=== PATIENT | female | born 1950 | race Caucasian/White ===

== ENCOUNTER → 2017-07-27 | Outpatient (CLI) | payer OTHER | LOC: FIMAGING 14:28 | PROVIDERS: ATTEND Obstetrics & Gynecology Gynecology | DX: Z12.31 Encounter for screening mammogram for malignant neoplasm of breast (principal) | CPT/HCPCS: G0202 ==

== ENCOUNTER 2017-11-18 05:47 | Observation (INO) | payer OTHER ==
--- NOTE | 2017-11-17 21:07 | PDGENHP ---
History and Physical History and Physical: Assessment and Plan: 1. Cystocele, lateral Lizbet has stage III pelvic organ prolapse which is predominantly her anterior compartment with lesser her apical and posterior. She also has a dilated genital hiatus. We reviewed all conservative and surgical options. Given her active lifestyle and her prolapse involving all 3 compartments her best option appears to be a supracervical hysterectomy with sacral colpopexy and perineoplasty. She will discuss this with her and call us back when she is ready to schedule. 2. Second degree uterine prolapse 3. Rectocele Subjective: Patient ID: Lizbet Oneal is a 67 y.o. female who [facility] to [facility] for prolapse. HPI Lizbet Oneal presents for a preoperative visit. She is scheduled for a sacrocolpopexy. The risks, benefits, and alternatives were presented and informed consent was obtained. 40 minutes of this 40 minute appointment was spent counceling, reviewing the procedure in detail, and discussing the preoperative and postoperative instructions. Below is a copy of our prior visit note. Lizbet is a 67-year-old para 4 woman. She was referred by her friend Dr. Darby Dyson. Her is a albacore fishing boat crewman in [place]. Her last was a twin vaginal . One twin weighed 8 lbs. 14 oz. She has had symptoms of prolapse for many years. She saw Dr. Katt Chandler in 2012. She has tried pelvic floor physical therapy without much benefit. She is not interested in trying a pessary. She is becoming more bothered by the protrusion from her vagina. It becomes more prominent when drinking fluids such as while golfing. She also notices it with activities such as skiing. She has no history of stress incontinence. She does have urinary frequency and occasional urgency. She is infrequently sexually active. PastMedicalHistory Past Medical History: Diagnosis Date Allergy to pollen Heart disease high cholesterol Urinary tract infection PastSurgicalHistory Past Surgical History: Procedure Laterality Date GYNECOLOGIC CRYOSURGERY JOINT REPLACEMENT Right 2013 CURRENT MEDICATIONS: Current Outpatient Prescriptions Medication Sig ASCORBATE CALCIUM (VITAMIN C PO) cholecalciferol (VITAMIN D3) 2,000 unit capsule ESTRACE 0.01 % (0.1 mg/gram) vaginal cream multivitamin with minerals tablet Take 1 tablet by mouth. rosuvastatin (CRESTOR) 20 mg tablet Take 20 mg by mouth. ZINC PO No current facility-administered medications for this visit. ALLERGIES: Methylchloroisothiazolinone I have reviewed, verified and agree with the past medical, surgical, , family, social and ROS history as documented by the RN today. Objective: Vital Signs: Visit Vitals BP 100/62 Pulse 67 Temp 35.9 C (96.7 F) (Temporal Artery) Resp 16 Ht 1.683 m (5' 6.25") Wt 73.2 kg (161 lb 6.4 oz) SpO2 95% BMI 25.85 kg/m Physical Exam Gen: This is an alert, well developed woman in no distress. Neuro: She moves all extremities. Psych: She is appropriate, oriented, with normal affect. Neck: No thyroid enlargement, adenopathy, or tenderness. Lungs: Clear to ascultation, no wheezes or rales. Heart: Regular rate and rhythm without obvious murmurs. Abdomen: Soft, non-tender, without guarding, rebound, or masses. Extremities: No edema or cyanosis. Pelvic: Normal external genitalia. She has a urethral carbuncle. Gaping introitus, vagina without discharge, atrophic. Cervix without lesions or discharge. Uterus normal sized, non-tender. Adnexa non-tender without enlargement. She has a third-degree cystocele, second-degree uterine prolapse, and second-degree rectocele. Uterus is retroverted with reduced mobility. POP-Q Values are: Aa= +3, Ba= +5, C= -1 Gh= 4.5, pb= 2, tvl= 10 Ap= -1, Bp= -1, D= -4 DATA: I have reviewed the pertinent medical records. TIME/COMMUNICATION: I personally spent a total of 50 minutes. Of that 40 minutes was counseling/ coordination of patient's care. See my note above for details. Jacques Levine MD Board Certified Female Pelvic Medicine and Reconstructive Surgery Director of Minimally Invasive Gynecologic Surgery, [facility] Surgeon in Minimally Invasive Gynecologic Surgery [facility] Surgeon in Robotic Surgery
[2017-11-18] MEDS ORDERED: LR 1,000 ML IV ONE (06:04)
[2017-11-18] MEDS ORDERED: LIDOCAINE 1% 2 ML INJ ID PRN (06:04)
[2017-11-18] MEDS ORDERED: BUPIVACAINE/EPI 0.5% 30 ML SDV ONE (06:13)
[2017-11-18] MEDS ORDERED: MIDAZOLAM 2 MG/2 ML VIAL IVP ONE (07:01)
--- NOTE | 2017-11-18 07:01 | PDANEPAE ---
ANE History of Present Illness 67 yo for Lap hysterectomy ANE Past Medical History - Cardiovascular History Hx Hypertension: No Hx Arrhythmias: No Hx Chest Pain: No Hx Coronary Artery / Peripheral Vascular Disease: No Hx CHF / Valvular Disease: No Hx Palpitations: No Cardiovascular History Comment: HIGH CHOL - Pulmonary History Hx COPD: No Hx Asthma/Reactive Airway Disease: No Hx Recent Upper Respiratory Infection: No Hx Oxygen in Use at Home: No Hx Sleep Apnea: No Sleep Apnea Screening Result - Last Documented: Negative - Neurologic History Hx Cerebrovascular Accident: No Hx Seizures: No Hx Dementia: No - Endocrine History Hx Diabetes: No - Renal History Hx Renal Disorders: Yes Renal History Comment: CYSTOCELE - Liver History Hx Hepatic Disorders: No - Neurological & Psychiatric Hx Hx Neurological and Psychiatric Disorders: No - Cancer History Hx Cancer: No - Congenital Disorder History Hx Congenital Disorders: No - GI History Hx Gastrointestinal Disorders: Yes Gastrointestinal History Comment: TENDS TOWARDS CONSTIPATION - Other Health History Other Health History: WEARS GLASSES - Chronic Pain History Chronic Pain: Yes (ARTHRITIS TO JOINTS) - Surgical History Prior Surgeries: RIGHT TKA 10/2013 ANE Review of Systems Review of Systems: - Exercise capacity METS (RN): 4 METS ANE Patient History - Allergies Allergies/Adverse Reactions: methylchloroisothiazolinone Allergy (Verified 10/15/17 12:14) RASH TO LEGS - Home Medications Home medications: home medication list seen and reviewed Home Medications: Ascorbic Acid [Vitamin C 500 mg (*)] 1,000 mg PO DAILY 10/14/17 [Last Taken ] Cholecalciferol Vit D3 [Vitamin D3 2000 units tab (OTC)] 2,000 units PO DAILY [Last Taken 11/11/17] Docusate Sodium [Colace 100 MG (*)] 100 mg PO DAILY 10/14/17 [Last Taken 09:00] Herbals/Supplements -Info Only 1 ea PO DAILY 10/14/17 [Last Taken 11/11/17] Multivitamins [Multivitamin (*)] 1 each PO DAILY 10/14/17 [Last Taken 11/11/17] Naproxen Sodium [Aleve 220 MG (*)] 220 - 440 mg PO BID 10/14/17 [Last Taken ] Rosuvastatin Calcium [Crestor] 10 mg PO DAILY 10/14/17 [Last Taken 03/06/18 09: 00] - NPO status NPO Status: no food or drink >8 hours NPO Since - Liquids (Date): 11/17/17 NPO Since - Liquids (Time): 22:00 NPO Since - Solids (Date): 11/17/17 NPO Since - Solids (Time): 19:30 - Smoking Hx Smoking Status: Former smoker - Family Anes Hx Family Hx Anesthesia Complications: NONE ANE Labs/Vital Signs - Vital Signs Blood Pressure: 134/79 Heart Rate: 57 Respiratory Rate: 14 O2 Sat (%): 94 Height: 5 ft 6.52 in Weight: 73.028 kg ANE Physical Exam - Airway Neck exam: FROM Mallampati Score: Class 2 Mouth exam: normal dental/mouth exam - Pulmonary Pulmonary: no respiratory distress - Cardiovascular Cardiovascular: regular rate and rhythym - ASA Status ASA Status: II ANE Anesthesia Plan Anesthesia Plan: general endotracheal anesthesia
[2017-11-18] MEDS ORDERED: ceFAZolin 2 GM/SWFI 2 GM/20 ML SYR IVP ONE (07:11)
--- NOTE | 2017-11-18 07:11 | PDHPUP ---
History & Physical Update H&P update statement: This history and physical update is based on an assessment of the patient which was completed after admission or registration (within 24 hours), but prior to the surgery/procedure. H&P update: H&P reviewed & patient examined, no change in patient's condition since H&P completed
[2017-11-18] MEDS ORDERED: REMIFENTANIL HCL 1 MG VIAL ONE (07:13)
[2017-11-18] MEDS ORDERED: fentaNYL 100 MCG/2 ML INJ ONE ×3 (07:13→10:18)
[2017-11-18] MEDS ORDERED: PROPOFOL/EMULSION 500 MG/50 ML BOTTLE IV ONE (07:13)
[2017-11-18] MEDS ORDERED: PROPOFOL 200 MG/20 ML VIAL ONE (07:15)
[2017-11-18] MEDS ORDERED: ROCURONIUM 100 MG/10 ML VIAL ONE (07:16)
[2017-11-18] MEDS ORDERED: DEXAMETHASONE 4 MG/ML VIAL ONE (07:17)
[2017-11-18] MEDS ORDERED: ONDANSETRON 4 MG/2 ML VIAL IVP PRN ×2 (09:45→09:58)
[2017-11-18] MEDS ORDERED: HYDROmorphONE/DILAUDID 1 MG/ML INJ IVP PRN (09:45)
[2017-11-18] MEDS ORDERED: NALOXONE HCL 0.4 MG/ML INJ IVP PRN (09:45)
[2017-11-18] MEDS ORDERED: PROMETHAZINE HCL 25 MG/ML INJ IVP PRN (09:58)
--- NOTE | 2017-11-18 09:58 | POSTOPPROG ---
Post Op Note Date of Operation: 11/18/17 Surgeon: Jacques Levine Supervisor [employer] Goods: Fabienne Soto Anesthesia: GET(General Endotracheal) Pre-op Diagnosis: Uterovaginal prolpse, stress incontinence Post-op Diagnosis: Same Procedure: Robotic hyst/BSO, sacrocolpopexy, TOT sling, cysto Findings: No urethral or bladder injury Inf/Abcess present in the surg proc area at time of surgery?: No EBL: Minimal Complications: None
[2017-11-18] MEDS ORDERED: LR 1,000 ML IV SCH (10:00)
--- NOTE | 2017-11-18 10:06 | POSTANESTH ---
Post Anesthetic Evaluation Cardiovascular Status: Normal, Stable Respiratory Status: Normal, Stable Level of Consciousness/Mental Status: Can Participate in Eval Pain Control: Adequate, Prn Tx Ordered Nausea/Vomiting Control: Adequate, Prn Tx Ordered Complications Possibly Related to Anesthesia: None Noted
[2017-11-18] MEDS ORDERED: HYDROmorphONE/DILAUDID 2 MG/ML INJ ONE (10:19)
[2017-11-18] MEDS ORDERED: HYDROmorphONE/DILAUDID 2 MG/ML INJ IVP PRN (10:21)
[2017-11-18] MEDS: HYDROmorphONE/DILAUDID 2 MG/ML INJ IVP PRN ×2 (10:24→10:35)
[2017-11-18] MEDS: fentaNYL 100 MCG/2 ML INJ IVP PRN ×2 (10:26→10:56)
[2017-11-18] MEDS ORDERED: DIAZEPAM 5 MG/ML 1 ML SYR ONE (11:02)
[2017-11-18] MEDS ORDERED: DIAZEPAM 5 MG/ML 1 ML SYR IVP PRN ×2 (11:17→12:06)
[2017-11-18] MEDS: KETOROLAC 30 MG/1 ML SDV IVP SCH ×2 (12:30→17:47)
[2017-11-18] MEDS: SIMETHICONE 80 MG TAB CHEW PO SCH ×3 (14:13→21:29)
[2017-11-18] MEDS: HYDROCODONE/APAP 5/325 TAB PO PRN ×3 (14:13→21:29)
--- NOTE | 2017-11-18 15:14 | GOP ---
[f rep st] OPERATIVE REPORT DATE OF OPERATION: 11/18/2017 SURGEON: Jacques Levine MD GAS TREATER: EMILY Medeiros ANESTHESIA: General. PREOPERATIVE DIAGNOSIS: 1. Uterovaginal prolapse. 2. Stress urinary incontinence. POSTOPERATIVE DIAGNOSIS: 1. Uterovaginal prolapse. 2. Stress urinary incontinence. PROCEDURE PERFORMED: 1. Robotic-assisted laparoscopic hysterectomy, bilateral salpingo oophorectomy. 2. Robotic-assisted laparoscopic sacrocervicopexy with mesh. 3. Repair of cystocele and rectocele. 4. Transobturator sling. 5. Perineorrhaphy. 6. Cystoscopy. FINDINGS: SPECIMENS: Uterus, bilateral tubes and ovaries. ESTIMATED BLOOD LOSS: Scant. DESCRIPTION OF PROCEDURE: The patient was taken to the operating room. She was identified. General anesthesia was administered. She was in the lithotomy position and prepped and prepared and draped in normal sterile fashion. A Saleh catheter was placed in her bladder. A 1 cm infraumbilical incision was made with a scalpel. The Veress needle with CO2 gas flowing was advanced into the peritoneal cavity. The abdomen was then insufflated with carbon dioxide gas. The 12 mm trocar, followed by the laparoscope were then inserted. The upper abdomen was unremarkable. Two lateral ports were then placed on either side under direct visualization. She was then placed in Trendelenburg position and the da Gretchen robot docked on the left side. The instruments were then brought into the abdominal cavity under direct visualization. The left round ligament was divided. The anterior lip of the broad ligament was incised to the bifurcation of the common iliac vessels. A window was created in the posterior leaf anterior to the ureter, which was easy to identify to skeletonize the infundibulopelvic vessels. They were then cauterized and transected. The anterior leaf of the broad ligament was then incised over the left uterine vessels and across the cervix. The bladder was gently dissected off the vagina. The left uterine vasculature was then cauterized and transected. The exact same procedure was performed on the patient's right side. This was then bivalved to aid in removal through the umbilicus. The uterus and upper two-thirds of the cervix were amputated from the lower third of the cervix with the hot naomi. The specimen was then placed in the right upper quadrant for later removal. The Colpo-Probe was placed in the vagina. The bladder was further dissected off the anterior vaginal wall down to the level of the bladder neck. The rectum dissected off the posterior vaginal wall down to the level of the perineal body. Measurements were then obtained and mesh trimmed to size. The sigmoid colon was then retracted laterally. The peritoneum over the sacral promontory was incised and the fat pad gently dissected off the anterior longitudinal ligament. The cervical stump was closed with a [id number] suture of 0-Monocryl. The mesh was brought into the abdominal cavity. Three sutures of 4-0 [place] were used attach the distal posterior mesh to the perineal body. Two additional rows of [place] sutures were placed posteriorly. Three were placed anteriorly to suture the anterior arm down to the level of the bladder neck and laterally to the paravaginal tissue. The Colpo-Probe was then removed. The sacral arm of the mesh was placed over the promontory and the tension adjusted. I then scrubbed back into the case to examine the vagina. The tension was further adjusted to resolve the cystocele and rectocele without undue tension on the vagina. Two sutures of 2-0 [place] were used to attach the sacral arm of the mesh to the anterior longitudinal ligament at the level of the upper first sacral vertebral body. The mesh was then covered with the peritoneum. The robot was then undocked. The specimen was removed through the umbilicus. The fascia was closed with 0-Vicryl, skin with 4-0 Monocryl and surgical adhesive. Attention was then turned to the sling portion of the procedure. A mid urethral incision was made with a scalpel. Tunnels were created bilaterally out to the obturator internus muscles. Skin incisions were made over the obturator notches. The halo trocar was placed through left skin incision, redirected around the ischiopubic rami and out through the vaginal incision using a vaginal finger as a guide. The lateral sulci was examined and no vaginal entry had occurred.. The sling was then attached and brought out along the same course. The exact same procedure was performed on the patient's opposite side. The vaginal incision was closed with 2-0 Vicryl. the skin with [id number]-[id number]. Cystoscopy was then performed. Both ureters had vigorous jets of urine. There was no evidence of bladder nor urethral injury seen. No mesh nor sutures were seen within the bladder, nor urethra. No obvious pathology was seen. A transverse incision was made along the perineal body. The posterior vaginal epithelium was undermined with the Metzenbaum scissors and incised sagittally. The epithelium was then dissected off the underlying rectovaginal connective tissue. The connective tissue was plicated with interrupted sutures of 0- Vicryl. The transverse perineal and bulbospongiosa muscles were plicated with 0- Vicryl. The excess epithelium was then trimmed and closed with a running 2-0 Vicryl suture. Vaginal packing was then placed. Anesthesia was reversed, and the patient taken to the PACU in awake and stable condition. COMPLICATIONS: None. DISPOSITION: Patient stable to PACU. /[id number]/MODL MTDD
[2017-11-18] MEDS: DOCUSATE SODIUM 100 MG CAP PO SCH (21:29)
[2017-11-19] MEDS: KETOROLAC 30 MG/1 ML SDV IVP SCH ×2 (00:05→05:40)
[2017-11-19] MEDS: HYDROCODONE/APAP 5/325 TAB PO PRN ×2 (03:59→10:07)
[2017-11-19 08:13] VITALS: BP 115/63; PULSE 55; RESP 17; TEMP 98; O2SAT 92
[2017-11-19] MEDS: DOCUSATE SODIUM 100 MG CAP PO SCH (10:07)
--- NOTE | 2017-11-19 10:42 | GDS ---
[f rep st] DISCHARGE SUMMARY DISCHARGE DIAGNOSIS: 1. Uterovaginal prolapse. 2. Stress urinary incontinence. PROCEDURES: 1. Robotic assisted hysterectomy, bilateral salpingo-oophorectomy. 2. Sacral colpopexy. 3. Midurethral sling. 4. Cystoscopy. HISTORY: The patient is a 67-year-old female with symptomatic prolapse and stress incontinence. She was taken to the operating room on 11/18/17 where she without complications. Her postoperative course was uneventful. The morning of voiding and tolerating a general diet. She was discharged home on postoperative day #1 in good condition. Medications included [place] a nd Aleve for pain. She had a followup appointment scheduled 3 weeks after surgery. /[id number]/MODL
== END 2017-11-19 11:51 | disposition home or self-care (01) ==
LOC: F3E 05:47 → FOB 12:02
PROVIDERS: ADMIT Obstetrics & Gynecology; ATTEND Obstetrics & Gynecology
PROC: 0TUC0JZ Supplement Bladder Neck with Synthetic Substitute, Open Approach (ICD-10-PCS; principal; 2017-11-18 07:15)
PROC: 0UUG4JZ Supplement Vagina with Synthetic Substitute, Percutaneous Endoscopic Approach (ICD-10-PCS; principal; 2017-11-18 07:15)
PROC: 0UT2FZZ Resection of Bilateral Ovaries, Via Natural or Artificial Opening With Percutaneous Endoscopic Assistance (ICD-10-PCS; principal; 2017-11-18 07:15)
PROC: 0UT7FZZ Resection of Bilateral Fallopian Tubes, Via Natural or Artificial Opening With Percutaneous Endoscopic Assistance (ICD-10-PCS; principal; 2017-11-18 07:15)
PROC: 0DUP8JZ Supplement Rectum with Synthetic Substitute, Via Natural or Artificial Opening Endoscopic (ICD-10-PCS; principal; 2017-11-18 07:15)
PROC: 8E0Y4CZ Robotic Assisted Procedure of Lower Extremity, Percutaneous Endoscopic Approach (ICD-10-PCS; principal; 2017-11-18 07:15)
PROC: 0UT9FZZ Resection of Uterus, Via Natural or Artificial Opening With Percutaneous Endoscopic Assistance (ICD-10-PCS; principal; 2017-11-18 07:15)
DX: N81.2 Incomplete uterovaginal prolapse (principal); N81.11 Cystocele, midline; N81.6 Rectocele; N39.3 Stress incontinence (female) (male); E78.5 Hyperlipidemia, unspecified; I25.10 Atherosclerotic heart disease of native coronary artery without angina pectoris; Z87.440 Personal history of urinary (tract) infections; Z96.651 Presence of right artificial knee joint
CPT/HCPCS: 57250; 57288; 57425; 58542; G0378; C1763; C1771; J0690; J1100; J1170; J1885; J2250; J2704; J3010; J3360

== ENCOUNTER → 2018-08-23 | Outpatient (CLI) | payer OTHER | LOC: FIMAGING 17:34 → EDSTATUS 18:00 | PROVIDERS: ATTEND Orthopaedic Surgery | DX: M71.22 Synovial cyst of popliteal space [Baker], left knee (principal); S82.002A Unspecified fracture of left patella, initial encounter for closed fracture ==